=== PATIENT | male | born 1965 | race African-American/Black ===

== ENCOUNTER 2016-09-19 11:06 | Inpatient (IN) | payer BC ==
[2016-09-19 11:42] VITALS: BMI 25.7
--- NOTE | 2016-09-19 14:48 | HP ---
CIWA Score - CIWA Score Nausea/Vomitin-No Nausea/No Vomiting Muscle Tremors: 4-Moderate,w/Arms Extend Anxiety: 4-Mod. Anxious/Guarded Agitation: 4-Moderately Restless Paroxysmal Sweats: 1-Minimal Palms Moist Orientation: 0-Oriented Tacttile Disturbances: 3-Moderate Itch/Numb/Burn Auditory Disturbances: 0-None Visual Disturbances: 0-None Headache: 0-None Present CIWA-Ar Total Score: 16 Admission ROS BHS - HPI Chief Complaint: DETOX TX FOR ALCOHOL DEPENDENCE. Allergies/Adverse Reactions: Allergies Allergy/AdvReac Type Severity Reaction Status Date / Time No Known Allergies Allergy Verified 09/19/16 14:01 History of Present Illness: 50 Y/O AA/MALE WITH A HX OF ALCOHOL AND CRACK/COCAINE DEPENDENCE SEEKING DETOX TX. PT HAS MULTIPLE DRUG/ALCOHOL TX HX. Exam Limitations: No Limitations - Ebola screening Have you traveled outside of the country in the last 21 days: No Have you had contact with anyone from an Ebola affected area: No Have you been sick,other than usual withdrawal symptoms: No Do you have a fever: No - Review of Systems Constitutional: Changes in sleep (SOMETIMES) EENT: reports: Blurred Vision (WEARS GLASSES), Tearing, Nose Congestion, Dental Problems (MISSING TEETH. 'I LOST MY DENTURES'.) Respiratory: reports: No Symptoms reported Cardiac: reports: Chest Pain (3 DAYS AGO. PAIN WHEN TOUCHED,MOVE, COUGH,LAUGH OR BREATH DEEPLY.) GI: reports: No Symptoms Reported : reports: Frequency Musculoskeletal: reports: No Symptoms Reported Integumentary: reports: No Symptoms Reported Neuro: reports: Tremors, Unsteady Gait Endocrine: reports: No Symptoms Reported Hematology: reports: No Symptoms Reported Psychiatric: reports: Orientated x3 Other Systems: Reviewed and Negative Patient History - Patient Medical History Hx Anemia: No Hx Asthma: No Hx Chronic Obstructive Pulmonary Disease (COPD): No Hx Cancer: No Hx Cardiac Disorders: No Hx Congestive Heart Failure: No Hx Hypertension: No Hx Hypercholesterolemia: No Hx Pacemaker: No HX Cerebrovascular Accident: No Hx Seizures: No Hx Dementia: No Hx Diabetes: No Hx Gastrointestinal Disorders: No Hx Liver Disease: No Hx Genitourinary Disorders: No Hx Sexually Transmitted Disorders: No Hx Renal Disease (ESRD): No Hx Thyroid Disease: No Hx Human Immunodeficiency Virus (HIV): No (12/07 LAST NEGATIVE) Hx Hepatitis C: No Hx Depression: No Hx Suicide Attempt: No Hx Bipolar Disorder: No Hx Schizophrenia: No - Patient Surgical History Past Surgical History: Yes Hx Neurologic Surgery: No Hx Cataract Extraction: No Hx Cardiac Surgery: No Hx Lung Surgery: Yes (chest tube insertion for pneumothorax right ,fx of right ribs in 1998) Hx Breast Surgery: No Hx Breast Biopsy: No Hx Abdominal Surgery: No Hx Appendectomy: No Hx Cholecystectomy: No Hx Genitourinary Surgery: No Hx Section: No Hx Orthopedic Surgery: Yes (LT MANDIBLE-2011) Other Surgical History: s/p surgery for fx left mandible in 2011 Anesthesia Reaction: No - PPD History Previous Implant?: Yes Implanted On Prior [facility] Admission?: Yes Date: 11/24/15 Results: 0 mm PPD to be Administered?: No - Reproductive History Patient is a Female of Child Bearing Age (11 -55 yrs old): No (MALE) - Smoking Cessation Smoking history: Current every day smoker Have you smoked in the past 12 months: Yes Aproximately how many cigarettes per day: 6 Cigars Per Day: 0 Hx Chewing Tobacco Use: No Initiated information on smoking cessation: Yes 'Breaking Loose' booklet given: 09/19/16 - Substance & Tx. History Hx Alcohol Use: Yes (BEER/VODKA) Hx Substance Use: Yes (CRACK) Substance Use Type: Alcohol, Cocaine Hx Substance Use Treatment: Yes ([facility]DETOX) - Substances Abused Crack Route: Smoking Frequency: Daily Amount used: $100 Age of first use: 21 Date of Last Use: 09/19/16 Alcohol-beer/vodka Route: Oral Frequency: Daily Amount used: 2-6 pks./1 pt. Age of first use: 16 Date of Last Use: 09/19/16 Family Disease History - Family Disease History Family Disease History: Other: Father (alcoholic ), Sister (dsa) Admission Physical Exam S - Vital Signs Vital Signs: Vital Signs - 24 hr 09/19/16 11:40 Temperature 97.3 F L Pulse Rate 93 H Respiratory 18 Rate Blood Pressure 112/72 - Physical General Appearance: Yes: Moderate Distress, Irritable, Anxious HEENTM: Yes: EOMI, Normocephalic, ROBBIN, Pharynx Normal Respiratory: Yes: Chest Non-Tender, Lungs Clear, Normal Breath Sounds, No Respiratory Distress Neck: Yes: Supple, Trachea in good position Cardiology: Yes: Regular Rhythm, Regular Rate, S1, S2 Abdominal: Yes: Normal Bowel Sounds, Non Tender, Soft Genitourinary: Yes: Other (N/C) Back: Yes: Within Normal Limits Musculoskeletal: Yes: full range of Motion, Gait Steady Extremities: Yes: Normal Range of Motion, Non-Tender, Tremors Neurological: Yes: Fully Oriented, Alert Integumentary: Yes: Dry, Warm Lymphatic: Yes: Within Normal Limits - Diagnostic (1) Alcohol dependence with uncomplicated withdrawal Current Visit: Yes Status: Acute (2) Nicotine dependence Current Visit: Yes Status: Chronic Qualifiers: Nicotine product type: cigarettes Substance use status: in withdrawal Qualified Code(s): F17.213 - Nicotine dependence, cigarettes, with withdrawal Cleared for Admission [facility] - Detox or Rehab [facility] Level of Care: Medically Managed Detox Regimen/Protocol: Librium [facility] Breath Alcohol Content Breath Alcohol Content: 0 Urine Drug Screen - Results Drug Screen Negative: No Urine Drug Screen Results: RILEY-Cocaine
[2016-09-19] MEDS ORDERED: hydrOXYzine PAMOATE 25 MG CAPSULE (FP) PO PRN (15:04)
[2016-09-19] MEDS ORDERED: IBUPROFEN 400 MG TABLET (FP) PO PRN (15:04)
[2016-09-19] MEDS ORDERED: P-EPHED 60MG/TRIPROLIDI 2.5MG TABLET PO PRN (15:04)
[2016-09-19] MEDS ORDERED: chlordiazePOXIDE HCL 25 MG CAPSULE PO PRN (15:04)
[2016-09-19] MEDS ORDERED: MAGNESIUM CITRATE 300 ML BOTTLE PO PRN (15:04)
[2016-09-19] MEDS ORDERED: MAGNESIUM HYDROX 2400MG/30ML ORAL SUSPENSION 30 ML CUP PO PRN (15:04)
[2016-09-19] MEDS ORDERED: LOPERAMIDE HCL 2 MG CAPSULE PO PRN (15:04)
[2016-09-19] MEDS ORDERED: ACETAMINOPHEN 325 MG TABLET (FP) PO PRN (15:04)
[2016-09-19] MEDS ORDERED: NICOTINE POLACRILEX 2 MG GUM BUC PRN (15:04)
[2016-09-19] MEDS ORDERED: MAG HYDROX/AL HYDROX/SIMETH 30 ML UNIT-DOSE CUP PO PRN (15:04)
[2016-09-19] MEDS ORDERED: MENTHOL/PHENOL 1 EACH UD MM PRN (15:04)
[2016-09-19] MEDS ORDERED: chlordiazePOXIDE HCL 25 MG CAPSULE PO SCH (17:00)
[2016-09-19] MEDS: chlordiazePOXIDE HCL 25 MG CAPSULE PO SCH ×2 (17:57→22:44)
[2016-09-19] MEDS: NICOTINE 14 MG/24 HOURS TOPICAL PATCH TD SCH (17:59)
[2016-09-19] MEDS: guaiFENesin/D-METHORPHAN HB 10 ML UNIT-DOSE CUPS PO PRN (17:59)
[2016-09-19] MEDS: IBUPROFEN 600 MG TABLET (FP) PO PRN (18:27)
[2016-09-19] MEDS: THIAMINE HCL 100 MG TABLET (FP) PO SCH (22:42)
[2016-09-19 23:11] LABS: URINE APPEARANCE CLEAR; URINE BILIRUBIN NEGATIVE (NEGATIVE); URINE BLOOD NEGATIVE (NEGATIVE); URINE COLOR STRAW; URINE GLUCOSE (UA) NEGATIVE (NEGATIVE); URINE KETONE NEGATIVE (NEGATIVE); URINE LEUK ESTERASE NEGATIVE (NEGATIVE); URINE NITRITE NEGATIVE (NEGATIVE); URINE PROTEIN NEGATIVE (NEGATIVE); URINE UROBILINOGEN NEGATIVE E.U./dl (0.2-1.0)
[2016-09-20] MEDS: chlordiazePOXIDE HCL 25 MG CAPSULE PO SCH ×4 (05:18→22:15)
[2016-09-20] MEDS: guaiFENesin/D-METHORPHAN HB 10 ML UNIT-DOSE CUPS PO PRN ×2 (05:20→14:39)
[2016-09-20] MEDS: IBUPROFEN 600 MG TABLET (FP) PO PRN ×2 (05:20→14:39)
[2016-09-20] MEDS: PRENATAL VITAMINS W/ FOLIC ACID TABLET (FP) PO SCH (10:24)
[2016-09-20] MEDS: NICOTINE 14 MG/24 HOURS TOPICAL PATCH TD SCH (10:25)
[2016-09-20 11:12] LABS: ALBUMIN 4.1 g/dl (3.4-5.0); ANION GAP 12 (8-16); CO2 24 mmol/L (21-32); GLUCOSE,RANDOM 92 mg/dL (74-106); SGOT/AST 39 U/L (15-37); SGPT/ALT 21 U/L (12-78)
[2016-09-20 11:14] LABS: ALK PHOS 51 U/L (45-117); BILIRUBIN,TOTAL 0.8 mg/dL (0.2-1.0); COCKROFT - GAULT 107.72; MCH 29.3 pg (25.7-33.7); MCHC 32.9 g/dl (32.0-35.9); MEAN PLT VOLUME 8.6 fl (7.5-11.1); PLATELET COUNT 266 K/MM3 (134-434); RDW 14.1 % (11.9-15.9); TOT PROT 7.2 g/dl (6.4-8.2); WHITE BLOOD COUNT 4.3 K/mm3 (4.0-10.0)
[2016-09-20 12:26] LABS: HIV 1 & 2 AB NEGATIVE; HIV 1 AGp24 NEGATIVE
--- NOTE | 2016-09-20 12:30 | PN ---
S CIWA - CIWA Score Nausea/Vomitin Muscle Tremors: 3 Anxiety: 3 Agitation: 3 Paroxysmal Sweats: 1-Minimal Palms Moist Orientation: 0-Oriented Tacttile Disturbances: 1-Very Mild Itch/Numbness Auditory Disturbances: 1-Very Mild Visual Disturbances: 1-Very Mild Sensitivity Headache: 2-Mild CIWA-Ar Total Score: 18 BHS Progress Note (SOAP) Subjective: ALERT,IRRITABLE,ANXIOUS,INTERRUPTED SLEEP,TREMOR Objective: 09/20/16 12:27 Vital Signs Temperature 97.5 F L 09/20/16 10:59 Pulse Rate 75 09/20/16 10:59 Respiratory Rate 18 09/20/16 10:59 Blood Pressure 118/80 09/20/16 10:59 O2 Sat by Pulse Oximetry (%) EKG NSR NO CHEST PAIN,NO SOB,NO DIZZINESS Laboratory Last Values WBC 4.3 K/mm3 (4.0-10.0) 09/20/16 06:05 RBC 4.48 M/mm3 (4.00-5.60) 09/20/16 06:05 Hgb 13.1 GM/dL (11.7-16.9) 09/20/16 06:05 Hct 39.9 % (35.4-49) 09/20/16 06:05 MCV 89.0 fl (80-96) 09/20/16 06:05 MCHC 32.9 g/dl (32.0-35.9) 09/20/16 06:05 RDW 14.1 % (11.9-15.9) 09/20/16 06:05 Plt Count 266 K/MM3 (134-434) 09/20/16 06:05 MPV 8.6 fl (7.5-11.1) 09/20/16 06:05 Sodium 141 mmol/L (136-145) 09/20/16 06:05 Potassium 4.2 mmol/L (3.5-5.1) 09/20/16 06:05 Chloride 105 mmol/L (98-107) 09/20/16 06:05 Carbon Dioxide 24 mmol/L (21-32) 09/20/16 06:05 Anion Gap 12 (8-16) 09/20/16 06:05 BUN 7 mg/dL (7-18) D 09/20/16 06:05 Creatinine 1.0 mg/dL (0.7-1.3) 09/20/16 06:05 Creat Clearance w eGFR > 60 (>60) 09/20/16 06:05 Random Glucose 92 mg/dL (74-106) 09/20/16 06:05 Calcium 9.0 mg/dL (8.5-10.1) 09/20/16 06:05 Total Bilirubin 0.8 mg/dL (0.2-1.0) 09/20/16 06:05 AST 39 U/L (15-37) H D 09/20/16 06:05 ALT 21 U/L (12-78) D 09/20/16 06:05 Alkaline Phosphatase 51 U/L (45-117) 09/20/16 06:05 Total Protein 7.2 g/dl (6.4-8.2) 09/20/16 06:05 Albumin 4.1 g/dl (3.4-5.0) 09/20/16 06:05 Urine Color Straw 09/19/16 14:00 Urine Appearance Clear 09/19/16 14:00 Urine pH 6.0 (5.0-8.0) 09/19/16 14:00 Ur Specific [place] 1.004 (1.001-1.035) 09/19/16 14:00 Urine Protein Negative (NEGATIVE) 09/19/16 14:00 Urine Glucose (UA) Negative (NEGATIVE) 09/19/16 14:00 Urine Ketones Negative (NEGATIVE) 09/19/16 14:00 Urine Blood Negative (NEGATIVE) 09/19/16 14:00 Urine Nitrite Negative (NEGATIVE) 09/19/16 14:00 Urine Bilirubin Negative (NEGATIVE) 09/19/16 14:00 Urine Urobilinogen Negative E.U./dl (0.2-1.0) 09/19/16 14:00 Ur Leukocyte Esterase Negative (NEGATIVE) 09/19/16 14:00 HIV 1&2 Antibody Screen Negative 09/20/16 07:40 HIV P24 Antigen Negative 09/20/16 07:40 LABS PENDING Assessment: 09/20/16 12:29 WITHDRAWAL SYMPTOM Plan: CONTINUE DETOX
[2016-09-20] MEDS: VITAMINS A AND D TOPICAL OINTMENT 60 GM TUBE TP SCH ×2 (14:39→17:54)
[2016-09-20] MEDS: diphenhydrAMINE HCL 50 MG CAPSULE PO PRN (22:15)
[2016-09-20] MEDS: THIAMINE HCL 100 MG TABLET (FP) PO SCH (22:15)
[2016-09-21] MEDS: diphenhydrAMINE HCL 50 MG CAPSULE PO PRN (01:10)
[2016-09-21] MEDS: IBUPROFEN 600 MG TABLET (FP) PO PRN ×3 (01:12→22:35)
[2016-09-21] MEDS: guaiFENesin/D-METHORPHAN HB 10 ML UNIT-DOSE CUPS PO PRN ×3 (01:12→22:36)
[2016-09-21] MEDS: chlordiazePOXIDE HCL 25 MG CAPSULE PO SCH ×2 (05:47→10:10)
[2016-09-21] MEDS: VITAMINS A AND D TOPICAL OINTMENT 60 GM TUBE TP SCH ×4 (05:49→17:59)
[2016-09-21] MEDS: NICOTINE 14 MG/24 HOURS TOPICAL PATCH TD SCH (10:10)
[2016-09-21] MEDS: PRENATAL VITAMINS W/ FOLIC ACID TABLET (FP) PO SCH (10:10)
--- NOTE | 2016-09-21 12:05 | PN ---
S CIWA - CIWA Score Nausea/Vomitin Muscle Tremors: 3 Anxiety: 3 Agitation: 2 Paroxysmal Sweats: 1-Minimal Palms Moist Orientation: 0-Oriented Tacttile Disturbances: 1-Very Mild Itch/Numbness Auditory Disturbances: 1-Very Mild Visual Disturbances: 1-Very Mild Sensitivity Headache: 2-Mild CIWA-Ar Total Score: 17 BHS Progress Note (SOAP) Subjective: ALERT,IRRITABLE,ANXIOUS,INTERRUPTED SLEEP,TREMOR Objective: 09/21/16 12:04 Vital Signs Temperature 97.5 F L 09/21/16 10:10 Pulse Rate 88 09/21/16 10:10 Respiratory Rate 18 09/21/16 10:10 Blood Pressure 101/64 09/21/16 10:10 O2 Sat by Pulse Oximetry (%) Laboratory Last Values WBC 4.3 K/mm3 (4.0-10.0) 09/20/16 06:05 RBC 4.48 M/mm3 (4.00-5.60) 09/20/16 06:05 Hgb 13.1 GM/dL (11.7-16.9) 09/20/16 06:05 Hct 39.9 % (35.4-49) 09/20/16 06:05 MCV 89.0 fl (80-96) 09/20/16 06:05 MCHC 32.9 g/dl (32.0-35.9) 09/20/16 06:05 RDW 14.1 % (11.9-15.9) 09/20/16 06:05 Plt Count 266 K/MM3 (134-434) 09/20/16 06:05 MPV 8.6 fl (7.5-11.1) 09/20/16 06:05 Sodium 141 mmol/L (136-145) 09/20/16 06:05 Potassium 4.2 mmol/L (3.5-5.1) 09/20/16 06:05 Chloride 105 mmol/L (98-107) 09/20/16 06:05 Carbon Dioxide 24 mmol/L (21-32) 09/20/16 06:05 Anion Gap 12 (8-16) 09/20/16 06:05 BUN 7 mg/dL (7-18) D 09/20/16 06:05 Creatinine 1.0 mg/dL (0.7-1.3) 09/20/16 06:05 Creat Clearance w eGFR > 60 (>60) 09/20/16 06:05 Random Glucose 92 mg/dL (74-106) 09/20/16 06:05 Calcium 9.0 mg/dL (8.5-10.1) 09/20/16 06:05 Total Bilirubin 0.8 mg/dL (0.2-1.0) 09/20/16 06:05 AST 39 U/L (15-37) H D 09/20/16 06:05 ALT 21 U/L (12-78) D 09/20/16 06:05 Alkaline Phosphatase 51 U/L (45-117) 09/20/16 06:05 Total Protein 7.2 g/dl (6.4-8.2) 09/20/16 06:05 Albumin 4.1 g/dl (3.4-5.0) 09/20/16 06:05 Urine Color Straw 09/19/16 14:00 Urine Appearance Clear 09/19/16 14:00 Urine pH 6.0 (5.0-8.0) 09/19/16 14:00 Ur Specific [place] 1.004 (1.001-1.035) 09/19/16 14:00 Urine Protein Negative (NEGATIVE) 09/19/16 14:00 Urine Glucose (UA) Negative (NEGATIVE) 09/19/16 14:00 Urine Ketones Negative (NEGATIVE) 09/19/16 14:00 Urine Blood Negative (NEGATIVE) 09/19/16 14:00 Urine Nitrite Negative (NEGATIVE) 09/19/16 14:00 Urine Bilirubin Negative (NEGATIVE) 09/19/16 14:00 Urine Urobilinogen Negative E.U./dl (0.2-1.0) 09/19/16 14:00 Ur Leukocyte Esterase Negative (NEGATIVE) 09/19/16 14:00 RPR Titer Nonreactive (NONREACTIVE) 09/20/16 06:05 HIV 1&2 Antibody Screen Negative 09/20/16 07:40 HIV P24 Antigen Negative 09/20/16 07:40 Assessment: 09/21/16 12:04 WITHDRAWAL SYMPTOM Plan: CONTINUE DETOX
[2016-09-21] MEDS: chlordiazePOXIDE 5 MG CAPSULE PO SCH ×2 (17:58→22:32)
[2016-09-21] MEDS: THIAMINE HCL 100 MG TABLET (FP) PO SCH (22:33)
--- NOTE | 2016-09-22 00:16 | EKG ---
Test Reason : Blood Pressure : / mmHG Vent. Rate : 085 BPM Atrial Rate : 085 BPM P-R Int : 116 ms QRS Dur : 084 ms QT Int : 370 ms P-R-T Axes : 077 044 020 degrees QTc Int : 440 ms NORMAL SINUS RHYTHM INCREASED R/S RATIO IN V1, CONSIDER EARLY TRANSITION OR POSTERIOR INFARCT ABNORMAL ECG NO PREVIOUS ECGS AVAILABLE Confirmed by RAJAN PRADO MD ([id number]) on 09/22/2016 12:15:55 AM Referred By: Confirmed By:RAJAN PRADO MD
[2016-09-22] MEDS: VITAMINS A AND D TOPICAL OINTMENT 60 GM TUBE TP SCH ×4 (00:30→17:10)
[2016-09-22] MEDS: chlordiazePOXIDE 5 MG CAPSULE PO SCH ×2 (05:49→10:23)
[2016-09-22] MEDS: guaiFENesin/D-METHORPHAN HB 10 ML UNIT-DOSE CUPS PO PRN ×2 (05:53→19:41)
[2016-09-22] MEDS: IBUPROFEN 600 MG TABLET (FP) PO PRN ×2 (05:54→19:40)
[2016-09-22] MEDS: PRENATAL VITAMINS W/ FOLIC ACID TABLET (FP) PO SCH (10:23)
[2016-09-22] MEDS: NICOTINE 14 MG/24 HOURS TOPICAL PATCH TD SCH (10:23)
--- NOTE | 2016-09-22 11:25 | PN ---
BHS Progress Note (SOAP) Subjective: interrupted sleep, shakes, cp better Objective: 09/22/16 11:24 Vital Signs Temperature 97.4 F L 09/22/16 10:00 Pulse Rate 83 09/22/16 10:00 Respiratory Rate 20 09/22/16 10:00 Blood Pressure 101/67 09/22/16 10:00 O2 Sat by Pulse Oximetry (%) Laboratory Tests 09/19/16 09/20/16 09/20/16 14:00 06:05 06:05 WBC 4.3 RBC 4.48 Hgb 13.1 Hct 39.9 MCV 89.0 MCHC 32.9 RDW 14.1 Plt Count 266 MPV 8.6 Sodium 141 Potassium 4.2 Chloride 105 Carbon Dioxide 24 Anion Gap 12 BUN 7 D Creatinine 1.0 Creat Clearance w eGFR > 60 Random Glucose 92 Calcium 9.0 Total Bilirubin 0.8 AST 39 H D ALT 21 D Alkaline Phosphatase 51 Total Protein 7.2 Albumin 4.1 Urine Color Straw Urine Appearance Clear Urine pH 6.0 Ur Specific [place] 1.004 Urine Protein Negative Urine Glucose (UA) Negative Urine Ketones Negative Urine Blood Negative Urine Nitrite Negative Urine Bilirubin Negative Urine Urobilinogen Negative Ur Leukocyte Esterase Negative RPR Titer HIV 1&2 Antibody Screen HIV P24 Antigen 09/20/16 09/20/16 06:05 07:40 WBC RBC Hgb Hct MCV MCHC RDW Plt Count MPV Sodium Potassium Chloride Carbon Dioxide Anion Gap BUN Creatinine Creat Clearance w eGFR Random Glucose Calcium Total Bilirubin AST ALT Alkaline Phosphatase Total Protein Albumin Urine Color Urine Appearance Urine pH Ur Specific [place] Urine Protein Urine Glucose (UA) Urine Ketones Urine Blood Urine Nitrite Urine Bilirubin Urine Urobilinogen Ur Leukocyte Esterase RPR Titer Nonreactive HIV 1&2 Antibody Screen Negative HIV P24 Antigen Negative pt aox3 in nad ambulating Assessment: 09/22/16 11:24 withdrawal sx;s Plan: cont. detox increase fluids
[2016-09-22] MEDS: chlordiazePOXIDE HCL 10 MG CAPSULE PO SCH ×2 (17:10→22:29)
[2016-09-22] MEDS: diphenhydrAMINE HCL 50 MG CAPSULE PO PRN (22:29)
[2016-09-22] MEDS: THIAMINE HCL 100 MG TABLET (FP) PO SCH (22:29)
[2016-09-23] MEDS: chlordiazePOXIDE HCL 10 MG CAPSULE PO SCH (05:59)
[2016-09-23] MEDS: guaiFENesin/D-METHORPHAN HB 10 ML UNIT-DOSE CUPS PO PRN (06:00)
[2016-09-23] MEDS: IBUPROFEN 600 MG TABLET (FP) PO PRN (06:01)
[2016-09-23] MEDS: VITAMINS A AND D TOPICAL OINTMENT 60 GM TUBE TP SCH (06:02)
[2016-09-23 06:19] VITALS: TEMP 97.7
--- NOTE | 2016-09-23 08:55 | DS ---
[facility] Detox Discharge Summary Admission Date: 09/19/16 Discharge Date: 09/23/16 - History Present History: Alcohol Dependence - Physical Exam Results Vital Signs: Vital Signs Temperature 97.7 F 09/23/16 06:00 Pulse Rate 77 09/23/16 06:00 Respiratory Rate 18 09/23/16 06:00 Blood Pressure 112/63 09/23/16 06:00 O2 Sat by Pulse Oximetry (%) - Treatment Hospital Course: Detox Protocol Followed, Detoxed Safely, Responded well, Discharged Condition Good, Rehab Referral Accepted - Medication Discharge Medications: Ambulatory Orders NK [No Known Home Medication] 11/22/15 - Diagnosis (1) Alcohol dependence with uncomplicated withdrawal Current Visit: Yes Status: Chronic (2) Nicotine dependence Current Visit: Yes Status: Chronic Qualifiers: Nicotine product type: cigarettes Substance use status: in withdrawal Qualified Code(s): F17.213 - Nicotine dependence, cigarettes, with withdrawal (3) Syncope Current Visit: No Status: Acute (4) fractures of right ribs Current Visit: No Status: Acute (5) s/p chest tube insertion for pneumothorax right Current Visit: No Status: Acute (6) s/p surgery of left mandible Current Visit: No Status: Acute - AMA Did Patient Leave Against Medical Advice: No
[2016-09-23 09:34] VITALS: BP 120/73; PULSE 85
== END 2016-09-23 09:49 | disposition home or self-care (01) | DRG 775 ==
LOC: YASAS 11:06 → Y6N 14:52
PROVIDERS: ADMIT Internal Medicine; ATTEND Internal Medicine Addiction Medicine
PROC: HZ2ZZZZ Detoxification Services for Substance Abuse Treatment (ICD-10-PCS; principal; 2016-09-23)
DX: F10.230 Alcohol dependence with withdrawal, uncomplicated (principal); F17.213 Nicotine dependence, cigarettes, with withdrawal; R55 Syncope and collapse; Z87.81 Personal history of (healed) traumatic fracture
CPT/HCPCS: 36415; 80053; 81003; 85027; 86593; 87389; 93005; 93010

== ENCOUNTER 2018-02-11 13:19 | Inpatient (IN) | payer BC ==
[2018-02-11 14:37] VITALS: BMI 32.3
--- NOTE | 2018-02-11 15:59 | HP ---
CIWA Score - CIWA Score Nausea/Vomitin Muscle Tremors: 1-None Visible, but [place] Anxiety: 2 Agitation: 3 Paroxysmal Sweats: 2 Orientation: 0-Oriented Tacttile Disturbances: 1-Very Mild Itch/Numbness Auditory Disturbances: 0-None Visual Disturbances: 0-None Headache: 2-Mild CIWA-Ar Total Score: 13 Admission [facility] Chief Complaint: ETOH withdrawal symptoms and cocaine dependence. Allergies/Adverse Reactions: Allergies Allergy/AdvReac Type Severity Reaction Status Date / Time No Known Allergies Allergy Verified 02/11/18 15:56 History of Present Illness: Patient presents with ETOH withdrawal symptoms and cocaine dependence. Patient started drinking at age 16. Drinks 120 ounces of beer and 1/2 pint of vodka daily. Denies hx of seizures and black outs. Last drink today. Patient also sniffs cocaine since age 23 age sniffs 30 dollars a day of cocaine. Patient ISTOP shows suboxone/klonipin prescriptions# [id number], 02/02/18- suboxone 8mg/ 2mg #60 and Klonipin 2mg #60. Patient denies taking Suboxone and Klonipin regularly. Last dose over 5 days ago. PMH includes anxiety and insomnia. Last detox admission here at [facility] in 2017. UDS +cocaine only. Exam Limitations: No Limitations - Ebola screening Have you traveled outside of the country in the last 21 days: No Have you had contact with anyone from an Ebola affected area: No Have you been sick,other than usual withdrawal symptoms: No Do you have a fever: No - Review of Systems Constitutional: Night Sweats, Changes in sleep EENT: reports: No Symptoms Reported. denies: Hearing Loss, Throat Pain Respiratory: reports: No Symptoms reported Cardiac: reports: No Symptoms Reported GI: reports: Diarrhea, Poor Appetite, Poor Fluid Intake, Abdominal cramping : reports: Frequency (due to ETOH intake). denies: Burning Musculoskeletal: reports: Joint Pain, Muscle Pain Integumentary: reports: Sweating Neuro: reports: Headache, Tremors Endocrine: reports: No Symptoms Reported Hematology: reports: No Symptoms Reported Psychiatric: reports: Orientated x3, Anxious, Depressed Patient History - Patient Medical History Hx Anemia: No Hx Asthma: No Hx Chronic Obstructive Pulmonary Disease (COPD): No Hx Cancer: No Hx Cardiac Disorders: No Hx Congestive Heart Failure: No Hx Hypertension: No Hx Hypercholesterolemia: No Hx Pacemaker: No HX Cerebrovascular Accident: No Hx Seizures: No Hx Dementia: No Hx Diabetes: No Hx Gastrointestinal Disorders: No Hx Liver Disease: No Hx Genitourinary Disorders: No Hx Sexually Transmitted Disorders: No Hx Renal Disease (ESRD): No Hx Thyroid Disease: No Hx Human Immunodeficiency Virus (HIV): No (12/07 LAST NEGATIVE) Hx Hepatitis C: No Hx Depression: Yes Hx Suicide Attempt: No Hx Bipolar Disorder: No Hx Schizophrenia: No - Patient Surgical History Past Surgical History: Yes Hx Neurologic Surgery: No Hx Cataract Extraction: No Hx Cardiac Surgery: No Hx Lung Surgery: Yes (chest tube insertion for pneumothorax right ,fx of right ribs in 1998) Hx Breast Surgery: No Hx Breast Biopsy: No Hx Abdominal Surgery: No Hx Appendectomy: No Hx Cholecystectomy: No Hx Genitourinary Surgery: No Hx Orthopedic Surgery: Yes (LT MANDIBLE-2011) Other Surgical History: s/p surgery for fx left mandible in 2011 Anesthesia Reaction: No - PPD History Documented Results: Negative w/proof Date: 11/24/15 Results: 0 mm PPD to be Administered?: Yes - Smoking Cessation Smoking history: Current every day smoker Have you smoked in the past 12 months: Yes Aproximately how many cigarettes per day: 6 Cigars Per Day: 0 Hx Chewing Tobacco Use: No Initiated information on smoking cessation: Yes 'Breaking Loose' booklet given: 02/11/18 - Substance & Tx. History Hx Alcohol Use: Yes Hx Substance Use: Yes Substance Use Type: Alcohol, Cocaine Hx Substance Use Treatment: Yes - Substances Abused Alcohol Route: Oral Frequency: Daily Amount used: 1 PINT LIQUOR - 2/40OZ BEER. Age of first use: 16 Date of Last Use: 02/11/18 Cocaine Route: Smoking Frequency: 3-6 times per week Amount used: $200 Age of first use: 24 Date of Last Use: 02/11/18 Family Disease History - Family Disease History Family Disease History: Other: Father (alcoholic ), Sister (dsa) Admission Physical Exam BHS - Vital Signs Vital Signs: Vital Signs - 24 hr 02/11/18 14:34 Temperature 97.4 F L Pulse Rate 85 Respiratory 18 Rate Blood Pressure 116/75 - Physical General Appearance: Yes: Appropriately Dressed, Tremorous, Sweating, Anxious HEENTM: Yes: EOMI, Hearing grossly Normal, Normocephalic, Normal Voice, ROBBIN, Pharynx Normal Respiratory: Yes: Chest Non-Tender, Lungs Clear, Normal Breath Sounds, No Respiratory Distress, No Accessory Muscle Use Neck: Yes: No masses,lesions,Nodules, Supple Breast: Yes: Breast Exam Deferred Cardiology: Yes: Regular Rhythm, Regular Rate, S1, S2 Abdominal: Yes: Normal Bowel Sounds, Non Tender, Soft Genitourinary: Yes: Frequency Back: Yes: Muscle Spasm Extremities: Yes: Normal Inspection, Normal Range of Motion, Non-Tender, Tremors Neurological: Yes: bench mechanic II-XII NML intact, Fully Oriented, Alert, Motor Strength 5/5, Depressed Affect Integumentary: Yes: Normal Color, Warm, Moist Lymphatic: Yes: Within Normal Limits - Diagnostic (1) Cocaine dependence Current Visit: Yes Status: Chronic Qualifiers: Substance use status: uncomplicated Qualified Code(s): F14.20 - Cocaine dependence, uncomplicated (2) Anxiety Current Visit: Yes Status: Chronic (3) Insomnia Current Visit: Yes Status: Chronic Qualifiers: Insomnia type: unspecified Qualified Code(s): G47.00 - Insomnia, unspecified (4) Alcohol dependence with uncomplicated withdrawal Current Visit: Yes Status: Acute (5) Nicotine dependence Current Visit: Yes Status: Chronic Qualifiers: Nicotine product type: cigarettes Substance use status: in withdrawal Qualified Code(s): F17.213 - Nicotine dependence, cigarettes, with withdrawal Cleared for Admission [facility] - Detox or Rehab [facility] Level of Care: Medically Managed Detox Regimen/Protocol: Librium [facility] Breath Alcohol Content Breath Alcohol Content: 0 Urine Drug Screen - Results Drug Screen Negative: No Urine Drug Screen Results: RILEY-Cocaine
[2018-02-11] MEDS ORDERED: ACETAMINOPHEN 325 MG TABLET (FP) PO PRN (16:10)
[2018-02-11] MEDS ORDERED: MENTHOL/PHENOL 1 EACH UD MM PRN (16:10)
[2018-02-11] MEDS ORDERED: MAGNESIUM CITRATE 300 ML BOTTLE PO PRN (16:10)
[2018-02-11] MEDS ORDERED: P-EPHED 60MG/TRIPROLIDI 2.5MG TABLET PO PRN (16:10)
[2018-02-11] MEDS ORDERED: LOPERAMIDE HCL 2 MG CAPSULE PO PRN (16:10)
[2018-02-11] MEDS ORDERED: IBUPROFEN 400 MG TABLET (FP) PO PRN (16:10)
[2018-02-11] MEDS ORDERED: MAG HYDROX/AL HYDROX/SIMETH 30 ML UNIT-DOSE CUP PO PRN (16:10)
[2018-02-11] MEDS ORDERED: hydrOXYzine PAMOATE 25 MG CAPSULE (FP) PO PRN (16:10)
[2018-02-11] MEDS ORDERED: MAGNESIUM HYDROX 2400MG/30ML ORAL SUSPENSION 30 ML CUP PO PRN (16:10)
[2018-02-11] MEDS ORDERED: guaiFENesin/D-METHORPHAN HB 10 ML UNIT-DOSE CUPS PO PRN (16:10)
[2018-02-11] MEDS ORDERED: chlordiazePOXIDE HCL 25 MG CAPSULE PO PRN (16:12)
[2018-02-11] MEDS: chlordiazePOXIDE HCL 25 MG CAPSULE PO SCH ×2 (19:17→22:17)
[2018-02-11] MEDS: THIAMINE HCL 100 MG TABLET (FP) PO SCH (22:20)
[2018-02-12 03:31] LABS: URINE APPEARANCE TURBID; URINE BILIRUBIN NEGATIVE (<2.0 mg/dL); URINE COLOR AMBER; URINE GLUCOSE (UA) NEGATIVE (NEGATIVE); URINE KETONE NEGATIVE (NEGATIVE); URINE LEUK ESTERASE NEGATIVE (NEGATIVE); URINE NITRITE NEGATIVE (NEGATIVE); URINE PROTEIN NEGATIVE (NEGATIVE); URINE UROBILINOGEN NEGATIVE mg/dL (0.2-1.0)
[2018-02-12] MEDS: chlordiazePOXIDE HCL 25 MG CAPSULE PO SCH ×4 (05:14→22:13)
--- NOTE | 2018-02-12 08:02 | EKG ---
Test Reason : Blood Pressure : / mmHG Vent. Rate : 081 BPM Atrial Rate : 081 BPM P-R Int : 110 ms QRS Dur : 084 ms QT Int : 368 ms P-R-T Axes : 073 037 029 degrees QTc Int : 427 ms SINUS RHYTHM WITH SHORT OR INCREASED R/S RATIO IN V1, CONSIDER EARLY TRANSITION OR POSTERIOR INFARCT ABNORMAL ECG WHEN COMPARED WITH ECG OF 19-SEP-2016 16:37, NO SIGNIFICANT CHANGE WAS FOUND Confirmed by MAYA FRAIRE MD ([id number]) on 02/12/2018 8:01:42 AM Referred By: Confirmed By:MAYA FRAIRE MD
[2018-02-12] MEDS: PRENATAL VITAMINS W/ FOLIC ACID TABLET (FP) PO SCH (10:18)
[2018-02-12] MEDS: NICOTINE POLACRILEX 4 MG GUM BC PRN (10:18)
[2018-02-12 10:19] LABS: HEMATOCRIT 37.8 % (35.4-49); HEMOGLOBIN 12.2 GM/dL (11.7-16.9); MCH 29.6 pg (25.7-33.7); MCHC 32.4 g/dl (32.0-35.9); MEAN CELL VOLUME 91.5 fl (80-96); MEAN PLT VOLUME 8.5 fl (7.5-11.1); PLATELET COUNT 213 K/MM3 (134-434); RBC 4.13 M/mm3 (4.00-5.60); RDW 14.3 % (11.9-15.9); WHITE BLOOD COUNT 3.5 K/mm3 (4.0-10.0)
[2018-02-12 10:42] LABS: ALBUMIN 3.3 g/dl (3.4-5.0); ALK PHOS 58 U/L (45-117); ANION GAP 8 MMOL/L (8-16); BILIRUBIN,TOTAL 0.8 mg/dL (0.2-1); BLOOD UREA NITROGEN 18 mg/dL (7-18); CALCIUM 8.7 mg/dL (8.5-10.1); CHLORIDE 109 mmol/L (98-107); CO2 26 mmol/L (21-32); CREATININE 1.1 mg/dL (0.55-1.3); GLUCOSE,RANDOM 67 mg/dL (74-106); POTASSIUM 4.5 mmol/L (3.5-5.1); SGOT/AST 14 U/L (15-37); SGPT/ALT 19 U/L (13-61); SODIUM 144 mmol/L (136-145); TOT PROT 6.2 g/dl (6.4-8.2)
--- NOTE | 2018-02-12 10:49 | PN ---
S CIWA - CIWA Score Nausea/Vomitin-No Nausea/No Vomiting Muscle Tremors: 3 Anxiety: 4-Mod. Anxious/Guarded Agitation: 3 Paroxysmal Sweats: 1-Minimal Palms Moist Orientation: 0-Oriented Tacttile Disturbances: 0-None Auditory Disturbances: 0-None Visual Disturbances: 0-None Headache: 0-None Present CIWA-Ar Total Score: 11 BHS Progress Note (SOAP) Subjective: ANXIETY,SEATS,SLIGHT TREMORS. DETOX TAPER PROCEEDING WELL. Objective: 02/12/18 10:49 Vital Signs 02/12/18 02/12/18 02/12/18 03:30 06:08 09:47 Temperature 97.3 F L 97.0 F L Pulse Rate 77 52 L Respiratory 18 18 18 Rate Blood Pressure 92/66 132/89 Laboratory Tests 02/11/18 02/12/18 02/12/18 23:05 07:00 07:00 WBC 3.5 L RBC 4.13 Hgb 12.2 Hct 37.8 MCV 91.5 MCH 29.6 MCHC 32.4 RDW 14.3 Plt Count 213 MPV 8.5 Sodium 144 Potassium 4.5 Chloride 109 H Carbon Dioxide 26 Anion Gap 8 BUN 18 Creatinine 1.1 Creat Clearance w eGFR > 60 Random Glucose 67 L Calcium 8.7 Total Bilirubin 0.8 AST 14 L ALT 19 Alkaline Phosphatase 58 Total Protein 6.2 L Albumin 3.3 L Urine Color [place] Urine Appearance Turbid Urine pH 5.0 Ur Specific [place] 1.024 Urine Protein Negative Urine Glucose (UA) Negative Urine Ketones Negative Urine Blood Negative Urine Nitrite Negative Urine Bilirubin Negative Urine Urobilinogen Negative Ur Leukocyte Esterase Negative Assessment: 02/12/18 10:49 WITHDRAWAL SX Plan: CONTINUE DETOX INCREASE PO FLUIDS
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
[2018-02-12] MEDS: THIAMINE HCL 100 MG TABLET (FP) PO SCH (22:13)
[2018-02-12] MEDS: MELATONIN 5 MG TABLETS PO PRN (22:14)
[2018-02-13] MEDS: chlordiazePOXIDE HCL 25 MG CAPSULE PO SCH ×2 (05:10→10:22)
--- NOTE | 2018-02-13 10:02 | PN ---
S CIWA - CIWA Score Nausea/Vomitin Muscle Tremors: 3 Anxiety: 3 Agitation: 3 Paroxysmal Sweats: No Perspiration Orientation: 0-Oriented Tacttile Disturbances: 0-None Auditory Disturbances: 0-None Visual Disturbances: 0-None Headache: 0-None Present CIWA-Ar Total Score: 12 BHS Progress Note (SOAP) Subjective: Shakes sweats Sleep disturbance Objective: 02/13/18 10:01 A & Ox 3 No acute distress at this time Vital Signs Temperature 97.7 F 02/13/18 09:04 Pulse Rate 77 02/13/18 09:04 Respiratory Rate 18 02/13/18 09:04 Blood Pressure 98/61 02/13/18 09:04 O2 Sat by Pulse Oximetry (%) Assessment: 02/13/18 10:01 Withdrawal sx Plan: Continue detox continue increased hydration
[2018-02-13] MEDS: PRENATAL VITAMINS W/ FOLIC ACID TABLET (FP) PO SCH (10:22)
[2018-02-13] MEDS: chlordiazePOXIDE 5 MG CAPSULE PO SCH ×2 (17:19→22:04)
[2018-02-13] MEDS: THIAMINE HCL 100 MG TABLET (FP) PO SCH (22:03)
[2018-02-13] MEDS: MELATONIN 5 MG TABLETS PO PRN (22:04)
[2018-02-14] MEDS: chlordiazePOXIDE 5 MG CAPSULE PO SCH ×2 (05:41→10:15)
[2018-02-14] MEDS: PRENATAL VITAMINS W/ FOLIC ACID TABLET (FP) PO SCH (10:15)
--- NOTE | 2018-02-14 12:23 | PN ---
BHS Progress Note (SOAP) Subjective: Interrupted sleep Objective: 02/14/18 12:21 Last Vital Signs Temp Pulse Resp BP Pulse Ox 96.4 F L 85 18 111/77 02/14/18 09:18 02/14/18 09:18 02/14/18 09:18 02/14/18 09:18 Laboratory Tests 02/11/18 02/12/18 02/12/18 23:05 07:00 07:00 WBC 3.5 L RBC 4.13 Hgb 12.2 Hct 37.8 MCV 91.5 MCH 29.6 MCHC 32.4 RDW 14.3 Plt Count 213 MPV 8.5 Sodium 144 Potassium 4.5 Chloride 109 H Carbon Dioxide 26 Anion Gap 8 BUN 18 Creatinine 1.1 Creat Clearance w eGFR > 60 Random Glucose 67 L Calcium 8.7 Total Bilirubin 0.8 AST 14 L ALT 19 Alkaline Phosphatase 58 Total Protein 6.2 L Albumin 3.3 L Urine Color Sunshine Urine Appearance Turbid Urine pH 5.0 Ur Specific [place] 1.024 Urine Protein Negative Urine Glucose (UA) Negative Urine Ketones Negative Urine Blood Negative Urine Nitrite Negative Urine Bilirubin Negative Urine Urobilinogen Negative Ur Leukocyte Esterase Negative RPR Titer HIV 1&2 Antibody Screen HIV P24 Antigen 02/12/18 02/12/18 07:00 07:00 WBC RBC Hgb Hct MCV MCH MCHC RDW Plt Count MPV Sodium Potassium Chloride Carbon Dioxide Anion Gap BUN Creatinine Creat Clearance w eGFR Random Glucose Calcium Total Bilirubin AST ALT Alkaline Phosphatase Total Protein Albumin Urine Color Urine Appearance Urine pH Ur Specific [place] Urine Protein Urine Glucose (UA) Urine Ketones Urine Blood Urine Nitrite Urine Bilirubin Urine Urobilinogen Ur Leukocyte Esterase RPR Titer Nonreactive HIV 1&2 Antibody Screen Negative HIV P24 Antigen Negative Labs reviewed Assessment: 02/14/18 12:22 Withdrawal symptoms Plan: Continue detox
[2018-02-14] MEDS: chlordiazePOXIDE HCL 10 MG CAPSULE PO SCH ×2 (17:15→22:01)
[2018-02-14] MEDS: NICOTINE POLACRILEX 4 MG GUM BC PRN (17:16)
[2018-02-14] MEDS: THIAMINE HCL 100 MG TABLET (FP) PO SCH (22:01)
[2018-02-14] MEDS: MELATONIN 5 MG TABLETS PO PRN (22:01)
[2018-02-15] MEDS: chlordiazePOXIDE HCL 10 MG CAPSULE PO SCH ×2 (05:10→10:25)
[2018-02-15] MEDS: PRENATAL VITAMINS W/ FOLIC ACID TABLET (FP) PO SCH (10:13)
[2018-02-15 10:46] VITALS: BP 109/76; PULSE 68; TEMP 97
--- NOTE | 2018-02-15 13:44 | PN ---
BHS Progress Note (SOAP) Subjective: HAs no complaints Objective: 02/15/18 13:36 A & O x 3 in no distress Vital Signs Temperature 97.0 F L 02/15/18 10:45 Pulse Rate 68 02/15/18 10:45 Respiratory Rate 18 02/15/18 10:45 Blood Pressure 109/76 02/15/18 10:45 O2 Sat by Pulse Oximetry (%) Assessment: 02/15/18 13:44 Detox completed Plan: for discharge
--- NOTE | 2018-02-15 13:55 | DS ---
[facility] Detox Discharge Summary Admission Date: 02/11/18 Discharge Date: 02/15/18 - History Additional Comments: pt being discharged Will follow up care at [facility],[address] [place] [address] No prescriptions needed - Physical Exam Results Vital Signs: Vital Signs Temperature 97.0 F L 02/15/18 10:45 Pulse Rate 68 02/15/18 10:45 Respiratory Rate 18 02/15/18 10:45 Blood Pressure 109/76 02/15/18 10:45 O2 Sat by Pulse Oximetry (%) Pertinent Admission Physical Exam Findings: withdrawal sx - Treatment Hospital Course: Detox Protocol Followed, Detoxed Safely, Responded well, Discharged Condition Good, Rehab Referral Accepted Patient has Accepted a Rehab Referral to: [facility] - Medication Discharge Medications: Ambulatory Orders Buprenorphine/Naloxone [Suboxone 8Mg/2Mg Sl Film -] 1 film DAILY 02/11/18 Clonazepam [Klonopin] 2 mg PO DAILY 02/11/18 - Diagnosis (1) Alcohol dependence with uncomplicated withdrawal Current Visit: Yes Status: Acute (2) Cocaine dependence Current Visit: Yes Status: Chronic Qualifiers: Substance use status: uncomplicated Qualified Code(s): F14.20 - Cocaine dependence, uncomplicated (3) Insomnia Current Visit: Yes Status: Acute Qualifiers: Insomnia type: unspecified Qualified Code(s): G47.00 - Insomnia, unspecified (4) Nicotine dependence Current Visit: Yes Status: Chronic Qualifiers: Nicotine product type: cigarettes Substance use status: in withdrawal Qualified Code(s): F17.213 - Nicotine dependence, cigarettes, with withdrawal (5) Syncope Current Visit: Yes Status: Chronic Qualifiers: Syncope type: unspecified Qualified Code(s): R55 - Syncope and collapse - AMA Did Patient Leave Against Medical Advice: No
== END 2018-02-15 13:42 | disposition home or self-care (01) | DRG 774 ==
LOC: YASAS 13:19 → Y3N 16:24
PROC: HZ2ZZZZ Detoxification Services for Substance Abuse Treatment (ICD-10-PCS; principal; 2018-02-11)
DX: F10.230 Alcohol dependence with withdrawal, uncomplicated (principal); F14.20 Cocaine dependence, uncomplicated; F17.213 Nicotine dependence, cigarettes, with withdrawal; F41.9 Anxiety disorder, unspecified; F32.9 Major depressive disorder, single episode, unspecified; G47.00 Insomnia, unspecified; R55 Syncope and collapse; Z87.828 Personal history of other (healed) physical injury and trauma; Z87.81 Personal history of (healed) traumatic fracture
CPT/HCPCS: 36415; 80053; 81003; 85027; 86593; 87389; 93005; 93010

== ENCOUNTER 2018-06-04 12:23 | Inpatient (IN) | payer BC ==
[2018-06-04 12:52] VITALS: BMI 29.5
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
[2018-06-04] MEDS ORDERED: guaiFENesin/D-METHORPHAN HB 10 ML UNIT-DOSE CUPS PO PRN (15:07)
[2018-06-04] MEDS ORDERED: MAGNESIUM HYDROX 2400MG/30ML ORAL SUSPENSION 30 ML CUP PO PRN (15:07)
[2018-06-04] MEDS ORDERED: MAGNESIUM CITRATE 300 ML BOTTLE PO PRN (15:07)
[2018-06-04] MEDS ORDERED: NICOTINE POLACRILEX 2 MG GUM BC PRN (15:07)
[2018-06-04] MEDS ORDERED: P-EPHED 60MG/TRIPROLIDI 2.5MG TABLET PO PRN (15:07)
[2018-06-04] MEDS ORDERED: MAG HYDROX/AL HYDROX/SIMETH 30 ML UNIT-DOSE CUP PO PRN (15:07)
[2018-06-04] MEDS ORDERED: MENTHOL/PHENOL 1 EACH UD MM PRN (15:07)
[2018-06-04] MEDS: diazePAM 5 MG TABLET PO PRN (18:52)
[2018-06-04] MEDS: IBUPROFEN 400 MG TABLET (FP) PO PRN (18:53)
[2018-06-04] MEDS: ACETAMINOPHEN 325 MG TABLET (FP) PO PRN (22:12)
[2018-06-04] MEDS: THIAMINE HCL 100 MG TABLET (FP) PO SCH (22:12)
[2018-06-04] MEDS: diazePAM 5 MG TABLET PO SCH (22:12)
[2018-06-05] MEDS: IBUPROFEN 400 MG TABLET (FP) PO PRN ×3 (04:14→18:53)
[2018-06-05] MEDS: diazePAM 5 MG TABLET PO SCH ×3 (05:15→22:04)
[2018-06-05] MEDS: PRENATAL VITAMINS W/ FOLIC ACID TABLET (FP) PO SCH (10:05)
[2018-06-05 11:01] LABS: HEMATOCRIT 44.8 % (35.4-49); MCH 28.7 pg (25.7-33.7); MCHC 31.3 g/dl (32.0-35.9); MEAN CELL VOLUME 91.5 fl (80-96); MEAN PLT VOLUME 8.7 fl (7.5-11.1); PLATELET COUNT 260 K/MM3 (134-434); RBC 4.89 M/mm3 (4.00-5.60); RDW 15.1 % (11.9-15.9); WHITE BLOOD COUNT 4.1 K/mm3 (4.0-10.0)
[2018-06-05 11:05] LABS: ALBUMIN 3.9 g/dl (3.4-5.0); ALK PHOS 54 U/L (45-117); ANION GAP 3 MMOL/L (8-16); BILIRUBIN,TOTAL 0.9 mg/dL (0.2-1); BLOOD UREA NITROGEN 14 mg/dL (7-18); CALCIUM 9.2 mg/dL (8.5-10.1); CHLORIDE 109 mmol/L (98-107); CO2 27 mmol/L (21-32); CREATININE 1.2 mg/dL (0.55-1.3); GLUCOSE,RANDOM 98 mg/dL (74-106); POTASSIUM 4.5 mmol/L (3.5-5.1); SGOT/AST 15 U/L (15-37); SGPT/ALT 23 U/L (13-61); SODIUM 139 mmol/L (136-145); TOT PROT 7.1 g/dl (6.4-8.2)
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
[2018-06-05] MEDS: THIAMINE HCL 100 MG TABLET (FP) PO SCH (22:04)
[2018-06-05] MEDS: ACETAMINOPHEN 325 MG TABLET (FP) PO PRN (22:05)
[2018-06-05] MEDS: MELATONIN 5 MG TABLETS PO PRN (22:06)
[2018-06-06] MEDS: diazePAM 5 MG TABLET PO PRN ×2 (05:40→22:34)
[2018-06-06] MEDS: IBUPROFEN 400 MG TABLET (FP) PO PRN ×3 (05:41→20:40)
--- NOTE | 2018-06-06 08:51 | PN ---
S CIWA - CIWA Score Nausea/Vomitin-Mild Nausea/No Vomiting Muscle Tremors: 2 Anxiety: 2 Agitation: 2 Paroxysmal Sweats: 1-Minimal Palms Moist Orientation: 0-Oriented Tacttile Disturbances: 0-None Auditory Disturbances: 0-None Visual Disturbances: 0-None Headache: 2-Mild CIWA-Ar Total Score: 10 BHS Progress Note (SOAP) Subjective: patient requests to see a psychiatrist in order to continue his psychotropic medication patient does not want to disclose the name of the medication report history of psychiatric hospitalization for suicidal ideation reported taking suboxone 8-2 mg sl bid last 30 days refilled 05/26/18 patient has negative subsone urine tox upon admission mild tremor otherwise doing well Objective: 06/06/18 10:31 Vital Signs Temperature 97.7 F 06/06/18 09:49 Pulse Rate 86 06/06/18 09:49 Respiratory Rate 18 06/06/18 09:49 Blood Pressure 110/75 06/06/18 09:49 O2 Sat by Pulse Oximetry (%) Laboratory Last Values WBC 4.1 K/mm3 (4.0-10.0) 06/05/18 07:45 RBC 4.89 M/mm3 (4.00-5.60) 06/05/18 07:45 Hgb 14.0 GM/dL (11.7-16.9) 06/05/18 07:45 Hct 44.8 % (35.4-49) D 06/05/18 07:45 MCV 91.5 fl (80-96) 06/05/18 07:45 MCH 28.7 pg (25.7-33.7) 06/05/18 07:45 MCHC 31.3 g/dl (32.0-35.9) L 06/05/18 07:45 RDW 15.1 % (11.9-15.9) 06/05/18 07:45 Plt Count 260 K/MM3 (134-434) D 06/05/18 07:45 MPV 8.7 fl (7.5-11.1) 06/05/18 07:45 Sodium 139 mmol/L (136-145) 06/05/18 07:45 Potassium 4.5 mmol/L (3.5-5.1) 06/05/18 07:45 Chloride 109 mmol/L (98-107) H 06/05/18 07:45 Carbon Dioxide 27 mmol/L (21-32) 06/05/18 07:45 Anion Gap 3 MMOL/L (8-16) L 06/05/18 07:45 BUN 14 mg/dL (7-18) 06/05/18 07:45 Creatinine 1.2 mg/dL (0.55-1.3) 06/05/18 07:45 Creat Clearance w eGFR > 60 (>60) 06/05/18 07:45 Random Glucose 98 mg/dL (74-106) 06/05/18 07:45 Calcium 9.2 mg/dL (8.5-10.1) 06/05/18 07:45 Total Bilirubin 0.9 mg/dL (0.2-1) 06/05/18 07:45 AST 15 U/L (15-37) 06/05/18 07:45 ALT 23 U/L (13-61) 06/05/18 07:45 Alkaline Phosphatase 54 U/L (45-117) 06/05/18 07:45 Total Protein 7.1 g/dl (6.4-8.2) 06/05/18 07:45 Albumin 3.9 g/dl (3.4-5.0) 06/05/18 07:45 RPR Titer Nonreactive (NONREACTIVE) 06/05/18 07:45 lab noted Assessment: 06/06/18 10:31 alcohol withdrawal sx Plan: continue alcohol detox
[2018-06-06] MEDS: PRENATAL VITAMINS W/ FOLIC ACID TABLET (FP) PO SCH (10:15)
[2018-06-06] MEDS: diazePAM 5 MG TABLET PO SCH (10:15)
[2018-06-06] MEDS: ACETAMINOPHEN 325 MG TABLET (FP) PO PRN (17:19)
[2018-06-06] MEDS: THIAMINE HCL 100 MG TABLET (FP) PO SCH (22:34)
[2018-06-06] MEDS: MELATONIN 5 MG TABLETS PO PRN (22:34)
[2018-06-07] MEDS: IBUPROFEN 400 MG TABLET (FP) PO PRN (05:25)
[2018-06-07] MEDS: diazePAM 5 MG TABLET PO PRN (06:09)
--- NOTE | 2018-06-07 07:30 | CONSULT ---
[facility] Psychiatric Consult - Data Date of interview: 06/07/18 Admission source: [facility] Identifying data: This is a 52 years old male, father opf two, living with family, on working compensation case support, with no psychiatric hospitalization history, patient here requesting detox from Alcohol , reports Alcohol withdrawal symptoms, reports abusing Cocaine, and Nicotine as well. Substance Abuse History: - Smoking Cessation. Smoking history: Current every day smoker. Have you smoked in the past 12 months: Yes. Aproximately how many cigarettes per day: 6. Cigars Per Day: 0. Hx Chewing Tobacco Use: No. Initiated information on smoking cessation: No. - Substances Abused. Alcohol. Route: Oral. Frequency: Daily. Amount used: 6-7 NIPS OF WINE/ 6 PK BEER. Age of first use: 16. Date of Last Use: 06/04/18. Cocaine. Route: Inhalation. Frequency: Daily. Amount used: $120. Age of first use: 28. Date of Last Use: 06/02/18 Medical History: R. Rib Fracture history, Facial surgery history, R. Pneumathorax history, Syncope history Psychiatric History: Patient reportsm history of anxiety and depressiuonl denies suicidal, homicidal history, denies taking psychiatric medications prior to admission. Patient preoccupied with psychiatric management upon discharge, motivated to participate in outpatient substance abuse facility program. Physical/Sexual Abuse/Trauma History: Denies Additional Comment: Observation. Detox Unit Care Protocol. Mental Status Exam - Mental Status Exam Alert and Oriented to: Person Cognitive Function: Fair Patient Appearance: Unkempt Mood: Anxious Affect: Mood Congruent Patient Behavior: Cooperative Speech Pattern: Appropriate Voice Loudness: Normal Thought Process: Circumstantial, Goal Oriented Thought Disorder: Being Controlled Hallucinations: Denies Suicidal Ideation: Denies Homicidal Ideation: Denies Insight/Judgement: Fair Sleep: Difficulty falling asleep Appetite: Weight gain Muscle strength/Tone: Normal, Severe Hypotonicity Additional Comments: Observation. Detox Unit Care Protocol. Psychiatric Findings - Problem List ([place] 1, 2,3) (1) Alcohol dependence with uncomplicated withdrawal Current Visit: No Status: Acute (2) Encounter for monitoring Suboxone maintenance therapy Current Visit: No Status: Acute (3) fractures of right ribs Current Visit: No Status: Acute (4) Anxiety Current Visit: No Status: Chronic (5) Cocaine dependence Current Visit: No Status: Chronic Qualifiers: Substance use status: uncomplicated Qualified Code(s): F14.20 - Cocaine dependence, uncomplicated (6) Nicotine dependence Current Visit: No Status: Chronic Qualifiers: Nicotine product type: cigarettes Substance use status: in withdrawal Qualified Code(s): F17.213 - Nicotine dependence, cigarettes, with withdrawal (7) s/p chest tube insertion for pneumothorax right Current Visit: No Status: Chronic (8) s/p surgery of left mandible Current Visit: No Status: Chronic - Initial Treatment Plan Initial Treatment Plan: Observation. Detox Unit Care Protocol.
--- NOTE | 2018-06-07 09:14 | DS ---
[facility] Detox Discharge Summary Admission Date: 06/04/18 Discharge Date: 06/07/18 - History Present History: Alcohol Dependence, Cocaine Dependence - Physical Exam Results Vital Signs: Vital Signs Temperature 97.7 F 06/07/18 06:39 Pulse Rate 65 06/07/18 06:39 Respiratory Rate 18 06/07/18 06:39 Blood Pressure 116/72 06/07/18 06:39 O2 Sat by Pulse Oximetry (%) - Treatment Hospital Course: Detox Protocol Followed, Detoxed Safely, Responded well, Discharged Condition Good, Rehab Referral Accepted - Medication Discharge Medications: Ambulatory Orders NK [No Known Home Medication] 06/04/18 - AMA Did Patient Leave Against Medical Advice: No (referred to outpatient rehab)
[2018-06-07 09:33] VITALS: BP 138/60; PULSE 66; TEMP 97.5
[2018-06-07] MEDS ORDERED: diazePAM 5 MG TABLET PO SCH (10:00)
[2018-06-07] MEDS: PRENATAL VITAMINS W/ FOLIC ACID TABLET (FP) PO SCH (11:07)
== END 2018-06-07 10:23 | disposition home or self-care (01) | DRG 773 ==
LOC: YASAS 12:23 → Y6N 17:17
PROC: HZ2ZZZZ Detoxification Services for Substance Abuse Treatment (ICD-10-PCS; principal; 2018-06-04)
DX: F10.230 Alcohol dependence with withdrawal, uncomplicated (principal); F11.20 Opioid dependence, uncomplicated; F14.20 Cocaine dependence, uncomplicated; F17.213 Nicotine dependence, cigarettes, with withdrawal; F41.9 Anxiety disorder, unspecified; K02.9 Dental caries, unspecified
CPT/HCPCS: 36415; 80053; 85027; 86593

== ENCOUNTER 2020-04-28 09:53 | Inpatient (IN) | payer OTHER ==
[2020-04-28] MEDS ORDERED: MENTHOL/PHENOL 1 EACH UD MM PRN (11:30)
[2020-04-28] MEDS ORDERED: MAG HYDROX/AL HYDROX/SIMETH 30 ML UNIT-DOSE CUP PO PRN (11:30)
[2020-04-28] MEDS ORDERED: NICOTINE POLACRILEX 4 MG GUM BUC PRN (11:30)
[2020-04-28] MEDS ORDERED: METHOCARBAMOL 500 MG TABLET PO PRN (11:30)
[2020-04-28] MEDS ORDERED: BISMUTH SUBSALICYLATE 524 MG/30 ML UD PO PRN (11:30)
[2020-04-28] MEDS ORDERED: ACETAMINOPHEN 325 MG TABLET (FP) PO PRN ×2 (11:30)
[2020-04-28] MEDS ORDERED: MAGNESIUM CITRATE 300 ML BOTTLE PO PRN (11:30)
[2020-04-28] MEDS ORDERED: chlordiazePOXIDE HCL 25 MG CAPSULE PO PRN (11:30)
[2020-04-28] MEDS ORDERED: MAGNESIUM HYDROX 2400MG/30ML ORAL SUSPENSION 30 ML CUP PO PRN (11:30)
[2020-04-28] MEDS ORDERED: ONDANSETRON *ODT* 4 MG TABLET SL PRN (11:30)
[2020-04-28 12:34] VITALS: BMI 22.4
[2020-04-28] MEDS: PRENATAL VITAMINS W/ FOLIC ACID TABLET (FP) PO SCH (13:29)
[2020-04-28] MEDS: guaiFENesin 600 MG TABLET.ER (FP) PO SCH ×2 (13:29→22:29)
[2020-04-28] MEDS: hydrOXYzine PAMOATE 25 MG CAPSULE (FP) PO SCH ×3 (13:29→22:29)
[2020-04-28] MEDS: chlordiazePOXIDE HCL 25 MG CAPSULE PO SCH ×2 (18:01→22:29)
[2020-04-28] MEDS: THIAMINE HCL 100 MG TABLET (FP) PO SCH (22:29)
[2020-04-28] MEDS: MELATONIN 5 MG TABLETS PO SCH (22:29)
[2020-04-29] MEDS: hydrOXYzine PAMOATE 25 MG CAPSULE (FP) PO SCH ×5 (05:18→22:11)
[2020-04-29] MEDS: chlordiazePOXIDE HCL 25 MG CAPSULE PO SCH ×4 (05:18→22:10)
[2020-04-29] MEDS: guaiFENesin 600 MG TABLET.ER (FP) PO SCH ×2 (10:20→22:10)
[2020-04-29] MEDS: PRENATAL VITAMINS W/ FOLIC ACID TABLET (FP) PO SCH (10:20)
[2020-04-29] MEDS: IBUPROFEN 400 MG TABLET (FP) PO PRN (10:21)
[2020-04-29 11:16] LABS: HEMATOCRIT 39.7 % (35.4-49); HEMOGLOBIN 13.1 GM/dL (11.7-16.9); MCH 30.6 pg (25.7-33.7); MCHC 33.1 g/dl (32.0-35.9); MEAN CELL VOLUME 92.6 fl (80-96); MEAN PLT VOLUME 8.4 fl (7.5-11.1); PLATELET COUNT 245 K/MM3 (134-434); POTASSIUM 3.9 mmol/L (3.5-5.1); RBC 4.29 M/mm3 (4.00-5.60); RDW 14.1 % (11.9-15.9); WHITE BLOOD COUNT 3.8 K/mm3 (4.0-10.0)
[2020-04-29 11:20] LABS: ALBUMIN 2.9 g/dl (3.4-5.0); BLOOD UREA NITROGEN 10.3 mg/dL (7-18); CALCIUM 8.3 mg/dL (8.5-10.1)
[2020-04-29 11:23] LABS: TOT PROT 5.8 g/dl (6.4-8.2)
[2020-04-29 11:24] LABS: CREATININE 1.1 mg/dL (0.55-1.3)
[2020-04-29 11:25] LABS: BILIRUBIN,TOTAL 0.5 mg/dL (0.2-1)
[2020-04-29 12:13] LABS: HIV INTERPRETATION NEGATIVE (NEGATIVE)
[2020-04-29] MEDS: THIAMINE HCL 100 MG TABLET (FP) PO SCH (22:09)
[2020-04-29] MEDS: MELATONIN 5 MG TABLETS PO SCH (22:09)
[2020-04-29] MEDS: traZODone HCL 50 MG TABLET (FP) PO PRN (22:10)
[2020-04-30] MEDS: hydrOXYzine PAMOATE 25 MG CAPSULE (FP) PO SCH ×5 (06:27→22:37)
[2020-04-30] MEDS: chlordiazePOXIDE HCL 25 MG CAPSULE PO SCH ×4 (06:27→22:37)
[2020-04-30] MEDS: IBUPROFEN 400 MG TABLET (FP) PO PRN (08:27)
[2020-04-30] MEDS: guaiFENesin 600 MG TABLET.ER (FP) PO SCH ×2 (10:08→22:37)
[2020-04-30] MEDS: PRENATAL VITAMINS W/ FOLIC ACID TABLET (FP) PO SCH (10:08)
[2020-04-30] MEDS: MELATONIN 5 MG TABLETS PO SCH (22:37)
[2020-04-30] MEDS: THIAMINE HCL 100 MG TABLET (FP) PO SCH (22:37)
[2020-05-01] MEDS ORDERED: chlordiazePOXIDE HCL 10 MG CAPSULE PO PRN
[2020-05-01] MEDS: hydrOXYzine PAMOATE 25 MG CAPSULE (FP) PO SCH ×5 (05:21→22:06)
[2020-05-01] MEDS: chlordiazePOXIDE HCL 10 MG CAPSULE PO SCH ×4 (05:21→22:06)
[2020-05-01] MEDS: PRENATAL VITAMINS W/ FOLIC ACID TABLET (FP) PO SCH (10:05)
[2020-05-01] MEDS: guaiFENesin 600 MG TABLET.ER (FP) PO SCH ×2 (10:05→22:03)
[2020-05-01] MEDS: MELATONIN 5 MG TABLETS PO SCH (22:03)
[2020-05-01] MEDS: THIAMINE HCL 100 MG TABLET (FP) PO SCH (22:03)
[2020-05-01] MEDS: traZODone HCL 50 MG TABLET (FP) PO PRN (22:52)
[2020-05-02] MEDS ORDERED: chlordiazePOXIDE HCL 10 MG CAPSULE PO SCH (05:00)
[2020-05-02] MEDS: hydrOXYzine PAMOATE 25 MG CAPSULE (FP) PO SCH ×3 (05:17→13:55)
[2020-05-02] MEDS: PRENATAL VITAMINS W/ FOLIC ACID TABLET (FP) PO SCH (10:18)
[2020-05-02] MEDS: guaiFENesin 600 MG TABLET.ER (FP) PO SCH (10:18)
[2020-05-02 13:23] VITALS: BP 111/69; PULSE 92; TEMP 97.7
[2020-05-03] MEDS ORDERED: chlordiazePOXIDE HCL 10 MG CAPSULE PO ONE (05:00)
== END 2020-05-02 14:46 | disposition home or self-care (01) | DRG 774 ==
LOC: YASAS 09:53 → Y3N 11:39
PROVIDERS: ADMIT Allergy & Immunology; ATTEND Allergy & Immunology
PROC: HZ2ZZZZ Detoxification Services for Substance Abuse Treatment (ICD-10-PCS; principal; 2020-04-28)
DX: F10.230 Alcohol dependence with withdrawal, uncomplicated (principal); F14.20 Cocaine dependence, uncomplicated; F17.213 Nicotine dependence, cigarettes, with withdrawal; F19.24 Other psychoactive substance dependence with psychoactive substance-induced mood disorder; R73.09 Other abnormal glucose; J40 Bronchitis, not specified as acute or chronic; G47.00 Insomnia, unspecified; Z59.0 Homelessness
CPT/HCPCS: 36415; 80053; 82962; 85027; 86780; 87389; C9803; U0003

== ENCOUNTER 2021-07-20 09:45 | Inpatient (IN) | payer OTHER ==
[2021-07-20 10:20] VITALS: BMI 31.8
[2021-07-20] MEDS ORDERED: ACETAMINOPHEN 325 MG TABLET (FP) PO PRN ×2 (10:45)
[2021-07-20] MEDS ORDERED: LOPERAMIDE HCL 2 MG CAPSULE PO PRN (10:45)
[2021-07-20] MEDS ORDERED: METHOCARBAMOL 500 MG TABLET PO PRN (10:45)
[2021-07-20] MEDS ORDERED: chlordiazePOXIDE HCL 25 MG CAPSULE PO ONE (10:45)
[2021-07-20] MEDS ORDERED: NICOTINE 10 MG CARTRIDGE (INHALER) IH PRN (10:45)
[2021-07-20] MEDS ORDERED: MAGNESIUM CITRATE 300 ML BOTTLE PO PRN (10:45)
[2021-07-20] MEDS ORDERED: ONDANSETRON *ODT* 4 MG TABLET SL PRN (10:45)
[2021-07-20] MEDS ORDERED: chlordiazePOXIDE HCL 25 MG CAPSULE PO PRN (10:45)
[2021-07-20] MEDS ORDERED: MAG HYDROX/AL HYDROX/SIMETH 30 ML UNIT-DOSE CUP PO PRN (10:45)
[2021-07-20] MEDS ORDERED: MENTHOL/PHENOL 1 EACH UD MM PRN (10:45)
[2021-07-20] MEDS ORDERED: MAGNESIUM HYDROX 2400MG/30ML ORAL SUSPENSION 30 ML CUP PO PRN (10:45)
[2021-07-20] MEDS ORDERED: BISMUTH SUBSALICYLATE 524 MG/30 ML PO PRN (10:45)
[2021-07-20] MEDS ORDERED: LIDOCAINE 5% TOPICAL PATCH TP PRN (10:48)
[2021-07-20] MEDS: hydrOXYzine PAMOATE 25 MG CAPSULE (FP) PO SCH ×3 (13:36→22:17)
[2021-07-20] MEDS: NICOTINE 21 MG/24 HOURS TOPICAL PATCH TD SCH (13:38)
[2021-07-20] MEDS: chlordiazePOXIDE HCL 25 MG CAPSULE PO SCH ×2 (18:13→22:13)
[2021-07-20] MEDS: THIAMINE HCL 100 MG TABLET (FP) PO SCH (22:15)
[2021-07-20] MEDS: MELATONIN 5 MG TABLETS PO SCH (22:15)
[2021-07-20] MEDS: LIDOCAINE PATCH REMOVAL MC SCH (22:15)
[2021-07-20] MEDS: IBUPROFEN 400 MG TABLET (FP) PO PRN (22:19)
[2021-07-21] MEDS: hydrOXYzine PAMOATE 25 MG CAPSULE (FP) PO SCH ×5 (05:57→22:18)
[2021-07-21] MEDS: chlordiazePOXIDE HCL 25 MG CAPSULE PO SCH ×4 (05:57→22:18)
[2021-07-21] MEDS ORDERED: LORATADINE 10 MG TABLET PO SCH (10:00)
[2021-07-21] MEDS: PRENATAL VITAMINS W/ FOLIC ACID TABLET (FP) PO SCH (10:45)
[2021-07-21] MEDS: NICOTINE 21 MG/24 HOURS TOPICAL PATCH TD SCH (10:45)
[2021-07-21 12:46] LABS: HEMATOCRIT 38.2 % (35.4-49); HEMOGLOBIN 13.1 GM/dL (11.7-16.9); MCH 30.1 pg (25.7-33.7); MCHC 34.2 g/dl (32.0-35.9); MEAN PLT VOLUME 7.6 fl (7.5-11.1); PLATELET COUNT 248 10^3/uL (134-434); RBC 4.34 M/mm3 (4.00-5.60); RDW 14.1 % (11.9-15.9)
[2021-07-21 12:48] LABS: CALCIUM 8.6 mg/dL (8.5-10.1)
[2021-07-21 12:49] LABS: ALBUMIN 3.5 g/dl (3.4-5.0); BLOOD UREA NITROGEN 18.4 mg/dL (7-18)
[2021-07-21 12:53] LABS: CREATININE 1.1 mg/dL (0.55-1.3)
[2021-07-21 12:54] LABS: BILIRUBIN,TOTAL 0.6 mg/dL (0.2-1); TOT PROT 6.5 g/dl (6.4-8.2)
[2021-07-21] MEDS: THIAMINE HCL 100 MG TABLET (FP) PO SCH (22:20)
[2021-07-21] MEDS: LIDOCAINE PATCH REMOVAL MC SCH (22:20)
[2021-07-21] MEDS: MELATONIN 5 MG TABLETS PO SCH (22:20)
[2021-07-22] MEDS: chlordiazePOXIDE HCL 25 MG CAPSULE PO SCH ×4 (06:21→22:08)
[2021-07-22] MEDS: hydrOXYzine PAMOATE 25 MG CAPSULE (FP) PO SCH ×5 (06:21→22:07)
[2021-07-22] MEDS: PRENATAL VITAMINS W/ FOLIC ACID TABLET (FP) PO SCH (10:39)
[2021-07-22] MEDS: NICOTINE 21 MG/24 HOURS TOPICAL PATCH TD SCH (10:39)
[2021-07-22] MEDS: IBUPROFEN 400 MG TABLET (FP) PO PRN (10:40)
[2021-07-22] MEDS ORDERED: MODERNA COVID-19 VACC,MRNA/PF 50 MCG/0.25 ML EACH IM ONE (11:00)
[2021-07-22 16:07] LABS: SARS-CoV-2 NAA Not Detected (Not Detected)
[2021-07-22] MEDS: THIAMINE HCL 100 MG TABLET (FP) PO SCH (22:07)
[2021-07-22] MEDS: LIDOCAINE PATCH REMOVAL MC SCH (22:08)
[2021-07-22] MEDS: LORATADINE 10 MG TABLET PO SCH (22:08)
[2021-07-22] MEDS: MELATONIN 5 MG TABLETS PO SCH ×2 (22:08→22:55)
[2021-07-22] MEDS: traZODone HCL 100 MG TABLET (FP) PO PRN (22:56)
[2021-07-23] MEDS ORDERED: chlordiazePOXIDE HCL 10 MG CAPSULE PO PRN
[2021-07-23] MEDS: chlordiazePOXIDE HCL 10 MG CAPSULE PO SCH ×4 (05:14→22:21)
[2021-07-23] MEDS: hydrOXYzine PAMOATE 25 MG CAPSULE (FP) PO SCH ×5 (05:14→22:21)
[2021-07-23] MEDS: PRENATAL VITAMINS W/ FOLIC ACID TABLET (FP) PO SCH (10:42)
[2021-07-23] MEDS: NICOTINE 21 MG/24 HOURS TOPICAL PATCH TD SCH (10:43)
[2021-07-23] MEDS: IBUPROFEN 400 MG TABLET (FP) PO PRN ×2 (10:46→17:43)
[2021-07-23] MEDS: MELATONIN 5 MG TABLETS PO SCH (22:21)
[2021-07-23] MEDS: THIAMINE HCL 100 MG TABLET (FP) PO SCH (22:21)
[2021-07-23] MEDS: LORATADINE 10 MG TABLET PO SCH (22:28)
[2021-07-23] MEDS: LIDOCAINE PATCH REMOVAL MC SCH (22:29)
[2021-07-24] MEDS: chlordiazePOXIDE HCL 10 MG CAPSULE PO SCH ×2 (05:51→17:56)
[2021-07-24] MEDS: hydrOXYzine PAMOATE 25 MG CAPSULE (FP) PO SCH ×5 (05:51→22:33)
[2021-07-24] MEDS: NICOTINE 21 MG/24 HOURS TOPICAL PATCH TD SCH (10:28)
[2021-07-24] MEDS: PRENATAL VITAMINS W/ FOLIC ACID TABLET (FP) PO SCH (10:28)
[2021-07-24] MEDS: LORATADINE 10 MG TABLET PO SCH (22:33)
[2021-07-24] MEDS: traZODone HCL 100 MG TABLET (FP) PO PRN (22:33)
[2021-07-24] MEDS: THIAMINE HCL 100 MG TABLET (FP) PO SCH (22:33)
[2021-07-24] MEDS: MELATONIN 5 MG TABLETS PO SCH (22:34)
[2021-07-24] MEDS: LIDOCAINE PATCH REMOVAL MC SCH (22:36)
[2021-07-25] MEDS ORDERED: chlordiazePOXIDE HCL 10 MG CAPSULE PO ONE (05:00)
[2021-07-25] MEDS: hydrOXYzine PAMOATE 25 MG CAPSULE (FP) PO SCH ×2 (05:47→11:18)
[2021-07-25 09:37] VITALS: BP 124/75; PULSE 93; TEMP 98
[2021-07-25] MEDS: PRENATAL VITAMINS W/ FOLIC ACID TABLET (FP) PO SCH (11:18)
[2021-07-25] MEDS: NICOTINE 21 MG/24 HOURS TOPICAL PATCH TD SCH (11:18)
== END 2021-07-25 10:30 | disposition home or self-care (01) | DRG 774 ==
LOC: YASAS 09:45 → Y6N 10:39
PROVIDERS: ADMIT Allergy & Immunology; ATTEND Allergy & Immunology
PROC: HZ2ZZZZ Detoxification Services for Substance Abuse Treatment (ICD-10-PCS; principal; 2021-07-20)
DX: F10.230 Alcohol dependence with withdrawal, uncomplicated (principal); F14.20 Cocaine dependence, uncomplicated; F17.210 Nicotine dependence, cigarettes, uncomplicated; G47.00 Insomnia, unspecified; M54.50 Low back pain, unspecified; G89.29 Other chronic pain; Z91.011 Allergy to milk products; Z59.01 Sheltered homelessness
CPT/HCPCS: 0013A; 36415; 80053; 85027; 86780; 91301; C9803; U0003; U0005

== ENCOUNTER 2024-03-09 16:09 | Inpatient (IN) | payer OTHER ==
[2024-03-09 16:48] VITALS: BMI 27.6
[2024-03-09] MEDS ORDERED: BISMUTH SUBSALICYLATE 524 MG/30 ML PO PRN (19:29)
[2024-03-09] MEDS ORDERED: LOPERAMIDE HCL 2 MG CAPSULE PO PRN (19:29)
[2024-03-09] MEDS ORDERED: guaiFENesin 600 MG TABLET.ER (FP) PO PRN (19:29)
[2024-03-09] MEDS ORDERED: NICOTINE POLACRILEX 2 MG LOZENGE BC PRN (19:29)
[2024-03-09] MEDS ORDERED: ONDANSETRON *ODT* 4 MG TABLET SL PRN (19:29)
[2024-03-09] MEDS ORDERED: MAG HYDROX/AL HYDROX/SIMETH 30 ML UNIT-DOSE CUP PO PRN (19:29)
[2024-03-09] MEDS ORDERED: BENZONATATE 200 MG CAPSULE PO PRN (19:29)
[2024-03-09] MEDS ORDERED: MAGNESIUM HYDROX 2400MG/30ML ORAL SUSPENSION 30 ML CUP PO PRN (19:29)
[2024-03-09] MEDS ORDERED: POLYETHYLENE GLYCOL (HEALTHYLAX) 3350 17 GM PACKET PO PRN (19:29)
[2024-03-09] MEDS ORDERED: DICYCLOMINE HCL 10 MG CAPSULE PO PRN (19:29)
[2024-03-09] MEDS ORDERED: NICOTINE POLACRILEX 2 MG GUM BUC PRN (19:29)
[2024-03-09] MEDS ORDERED: BENZOCAINE/MENTHOL (CHLORASEPTIC ) LOZENGE MM PRN (19:29)
[2024-03-09] MEDS: MELATONIN 5 MG TABLETS PO SCH (22:18)
[2024-03-09] MEDS: THIAMINE 100 MG TABLET PO SCH (22:18)
[2024-03-09] MEDS: IBUPROFEN 600 MG TABLET (FP) PO PRN (22:20)
[2024-03-09] MEDS: METHOCARBAMOL 500 MG TABLET PO PRN (22:20)
[2024-03-10] MEDS ORDERED: chlordiazePOXIDE HCL 25 MG CAPSULE PO PRN (10:05)
[2024-03-10] MEDS: PRENATAL VITAMINS W/ FOLIC ACID TABLET (FP) PO SCH (10:16)
[2024-03-10] MEDS: chlordiazePOXIDE HCL 25 MG CAPSULE PO SCH (10:53)
[2024-03-10 15:14] LABS: HEMATOCRIT 41.6 % (35.4-49); HEMOGLOBIN 13.3 GM/dL (11.7-16.9); MEAN CELL VOLUME 90.5 fl (80-96); MEAN PLT VOLUME 8.3 fl (7.5-11.1); PLATELET COUNT 341 10^3/uL (134-434); RBC 4.59 M/mm3 (4.00-5.60); RDW 15.3 % (11.9-15.9); WHITE BLOOD COUNT 3.6 K/mm3 (4.0-10.0)
[2024-03-10 16:58] LABS: CHLORIDE 112 mmol/L (98-107); POTASSIUM 4.3 mmol/L (3.5-5.1); SODIUM 142 mmol/L (136-145)
[2024-03-10 17:03] LABS: CALCIUM 9.2 mg/dL (8.5-10.1)
[2024-03-10 17:04] LABS: ALBUMIN 3.1 g/dl (3.4-5.0); ANION GAP 3 mmol/L (4-13); BLOOD UREA NITROGEN 15.1 mg/dL (7-18); CO2 28 mmol/L (21-32); GLUCOSE,RANDOM 102 mg/dL (74-106)
[2024-03-10 17:07] LABS: BILIRUBIN,TOTAL 0.3 mg/dL (0.2-1); SGOT/AST 9 U/L (15-37); SGPT/ALT 15 U/L (13-61)
[2024-03-10 17:08] LABS: TOT PROT 6.2 g/dl (6.4-8.2)
[2024-03-10 17:09] LABS: ALK PHOS 91 U/L (45-117)
[2024-03-11] MEDS: P-EPHED 60MG/TRIPROLIDI 2.5MG TABLET PO PRN (10:36)
[2024-03-11] MEDS ORDERED: ALBUTEROL SO4 HFA INHALER IH PRN (14:01)
[2024-03-11] MEDS: IBUPROFEN 400 MG TABLET (FP) PO PRN (22:01)
[2024-03-11] MEDS: traZODone HCL 50 MG TABLET (FP) PO PRN (22:02)
[2024-03-12] MEDS: chlordiazePOXIDE HCL 25 MG CAPSULE PO SCH (05:39)
[2024-03-13] MEDS ORDERED: chlordiazePOXIDE HCL 10 MG CAPSULE PO PRN
[2024-03-13] MEDS: chlordiazePOXIDE HCL 10 MG CAPSULE PO SCH (05:29)
[2024-03-14] MEDS: chlordiazePOXIDE HCL 10 MG CAPSULE PO SCH (06:00)
[2024-03-14] MEDS: ACETAMINOPHEN 325 MG TABLET (FP) PO PRN (10:35)
[2024-03-15] MEDS: chlordiazePOXIDE HCL 10 MG CAPSULE PO ONE (05:38)
[2024-03-15] MEDS: MINERAL OIL/PETROLAT/WATER TOPICAL CREAM 113 GM JAR TP SCH (13:51)
[2024-03-15] MEDS: hydrOXYzine PAMOATE 25 MG CAPSULE (FP) PO PRN (21:38)
[2024-03-16 06:23] VITALS: RESP 17
[2024-03-16 09:48] VITALS: BP 123/72; PULSE 96; TEMP 98.6
== END 2024-03-16 13:17 | disposition other institution (70) | DRG 774 ==
LOC: YASAS 16:09 → Y3N 20:23
PROVIDERS: ADMIT Allergy & Immunology; ATTEND Surgery
PROC: HZ2ZZZZ Detoxification Services for Substance Abuse Treatment (ICD-10-PCS; principal; 2024-03-09)
DX: F10.230 Alcohol dependence with withdrawal, uncomplicated (principal); F14.20 Cocaine dependence, uncomplicated; F17.210 Nicotine dependence, cigarettes, uncomplicated; F19.282 Other psychoactive substance dependence with psychoactive substance-induced sleep disorder; M54.50 Low back pain, unspecified; G89.29 Other chronic pain; Z87.01 Personal history of pneumonia (recurrent); Z59.00 Homelessness unspecified; Z56.0 Unemployment, unspecified
CPT/HCPCS: 0241U-QW; 36415; 71046-TC-FY; 80053; 80305; 80307; 85027; 86780; 87811; 93005; 93010

== ENCOUNTER 2024-03-16 13:18 | Inpatient (IN) | payer OTHER ==
[2024-03-16] MEDS ORDERED: NICOTINE POLACRILEX 2 MG GUM BUC PRN (15:06)
[2024-03-16] MEDS ORDERED: NALOXONE (NARCAN) HCL 4 MG/0.1 ML SPRAY NS PRN (15:06)
[2024-03-16] MEDS ORDERED: LOPERAMIDE HCL 2 MG CAPSULE PO PRN (15:06)
[2024-03-16] MEDS ORDERED: BENZOCAINE/MENTHOL (CHLORASEPTIC ) LOZENGE MM PRN (15:06)
[2024-03-16] MEDS ORDERED: METHOCARBAMOL 500 MG TABLET PO PRN (15:06)
[2024-03-16] MEDS ORDERED: POLYETHYLENE GLYCOL (HEALTHYLAX) 3350 17 GM PACKET PO PRN (15:06)
[2024-03-16] MEDS ORDERED: MAGNESIUM HYDROX 2400MG/30ML ORAL SUSPENSION 30 ML CUP PO PRN (15:06)
[2024-03-16] MEDS ORDERED: ACETAMINOPHEN 325 MG TABLET (FP) PO PRN (15:06)
[2024-03-16] MEDS ORDERED: NALOXONE HCL 0.4 MG/ML VIAL IVPUSH PRN (15:06)
[2024-03-16] MEDS ORDERED: BENZONATATE 200 MG CAPSULE PO PRN (15:06)
[2024-03-16] MEDS ORDERED: guaiFENesin 600 MG TABLET.ER (FP) PO PRN (15:06)
[2024-03-16 15:24] VITALS: BMI 27.6
[2024-03-16] MEDS: IBUPROFEN 600 MG TABLET (FP) PO PRN (16:24)
[2024-03-16] MEDS: MELATONIN 5 MG TABLETS PO SCH (22:02)
[2024-03-16] MEDS: THIAMINE 100 MG TABLET PO SCH (22:02)
[2024-03-16] MEDS: traZODone HCL 50 MG TABLET (FP) PO SCH (22:02)
[2024-03-16] MEDS: MINERAL OIL/PETROLAT/WATER TOPICAL CREAM 113 GM JAR TP SCH (22:03)
[2024-03-17] MEDS: PRENATAL VITAMINS W/ FOLIC ACID TABLET (FP) PO SCH (10:34)
[2024-03-17] MEDS: NICOTINE 14 MG/24 HOURS TOPICAL PATCH TD SCH (10:34)
[2024-03-20] MEDS: hydrOXYzine PAMOATE 25 MG CAPSULE (FP) PO PRN (09:33)
[2024-03-21] MEDS: TUBERCULIN PPD 5 TU/0.1ML VIAL ID ONE (10:48)
[2024-03-22] MEDS: ALBUTEROL SO4 HFA INHALER IH PRN (19:17)
[2024-03-23] MEDS: MAG HYDROX/AL HYDROX/SIMETH 30 ML UNIT-DOSE CUP PO PRN (10:07)
[2024-03-23] MEDS ORDERED: SIMETHICONE 80 MG TAB.CHEW (FP) PO PRN (10:40)
[2024-03-23] MEDS: traZODone HCL 100 MG TABLET (FP) PO SCH (21:09)
[2024-03-23] MEDS: BACLOFEN 10 MG TABLET (FP) PO SCH (21:09)
[2024-03-23] MEDS: IBUPROFEN 400 MG TABLET (FP) PO PRN (21:10)
[2024-03-24 12:36] LABS: CHOLESTEROL 224 mg/dL (50-200)
[2024-03-24 12:37] LABS: LDL CHOLESTEROL (ONLY SJRH) 129 mg/dL (5-100)
[2024-03-24 12:40] LABS: HDL CHOLESTEROL 67 mg/dL (40-60)
[2024-03-24 13:24] LABS: HIV INTERPRETATION NEGATIVE (NEGATIVE)
[2024-03-25] MEDS: ATORVASTATIN CA 10 MG TABLET (FP) PO SCH (21:09)
[2024-04-05] MEDS ORDERED: BENZOCAINE 20 % GEL TUBE MM PRN (16:20)
[2024-04-05] MEDS: NALTREXONE HCL 50 MG TABLET PO ONE (17:12)
[2024-04-05] MEDS: AMOX TR/POT CLAV 500MG/125MG TABLETS (FP) PO SCH (17:12)
[2024-04-06] MEDS: NALTREXONE HCL 50 MG TABLET PO SCH (10:23)
[2024-04-12 06:53] VITALS: BP 145/78; PULSE 67; RESP 16; TEMP 97.9
[2024-04-12] MEDS: NALOXONE (NYS OPIOID OVERDOSE PROGRAM) 4 MG/0.1 ML SPRAY NS SCH (08:59)
== END 2024-04-12 09:45 | disposition home or self-care (01) | DRG 772 ==
LOC: YASAS 13:18 → Y3NR 13:22 → Y5N 03-17 11:52
PROVIDERS: ADMIT Allergy & Immunology; ATTEND Psychiatry & Neurology Pain Medicine
PROC: HZ42ZZZ Group Counseling for Substance Abuse Treatment, Cognitive-Behavioral (ICD-10-PCS; principal; 2024-03-16)
DX: F14.20 Cocaine dependence, uncomplicated (principal); F10.20 Alcohol dependence, uncomplicated; F17.210 Nicotine dependence, cigarettes, uncomplicated; F19.282 Other psychoactive substance dependence with psychoactive substance-induced sleep disorder; F41.9 Anxiety disorder, unspecified; E78.5 Hyperlipidemia, unspecified; G47.00 Insomnia, unspecified; K02.9 Dental caries, unspecified; M54.50 Low back pain, unspecified; G89.29 Other chronic pain
CPT/HCPCS: 36415; 80061; 80305; 87389; J0475